=== PATIENT | male | born 1985 | race Caucasian/White ===

== ENCOUNTER 2018-05-26 20:10 | Emergency (ER) | payer OTHER ==
[~2018-05-26] VITALS: Ht 177.8 cm; Wt 94.3 kg
[2018-05-26 20:20] VITALS: BP 156/89
--- NOTE | 2018-05-26 20:22 | ED.ADGEN ---
Adult General Chief Complaint Chief Complaint ".. I keep getting these oral lesions.. my tongue swells.. 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 Patient has been evaluated several times for allergic like presentation. Patient only new meds as Chantix fo smoking cessation. Patient did eat a banana for breakfast today but has not had problems with latex fruits in the past. No recent travel. No overseas travel. No known toxic exposures. Patient does have a history of eczema. Patient normally follows at [facility]. Up-to-date with vaccinations. Review of Systems Review of Systems Constitutional: Denies fever or chills [] Eyes: Denies change in visual acuity, redness, or eye pain [] HENT: Denies nasal congestion or sore throat []complains of oral lesions and tongue swelling Respiratory: Denies cough or shortness of breath [] Cardiovascular: No additional information not addressed in HPI [] GI: Denies abdominal pain, nausea, vomiting, bloody stools or diarrhea [] : Denies dysuria or hematuria [] Musculoskeletal: Denies back pain or joint pain [] Integument: Denies rash or skin lesions [] Neurologic: Denies headache, focal weakness or sensory changes [] Endocrine: Denies polyuria or polydipsia [] All other systems were reviewed and found to be within normal limits, except as documented in this note. Family History Family History Noncontributory Current Medications Current Medications Current Medications Medications (Trade) Dose Ordered Sig/[facility] Start Time Stop Time Status Last Admin Dose Admin Albuterol Sulfate (Ventolin Hfa Inhaler) 2 puff 1X ONCE 05/26/18 20:45 05/26/18 20:49 DC 05/26/18 21:17 2 PUFF Diphenhydramine HCl (Benadryl) 50 mg 1X ONCE 05/26/18 20:45 05/26/18 20:49 DC 05/26/18 21:07 50 MG Famotidine (Pepcid Vial) 20 mg 1X ONCE 05/26/18 20:45 05/26/18 20:49 DC 05/26/18 21:11 20 MG Methylprednisolone Acetate (DEPO-Medrol IM) 40 mg 1X ONCE 05/26/18 20:45 05/26/18 20:49 DC 05/26/18 21:11 40 MG Allergies Allergies Allergies Coded Allergies Type Severity Reaction Last Updated Verified No Known Drug Allergies 05/26/18 No Physical Exam Physical Exam Constitutional: Well developed, well nourished, no acute distress, non-toxic appearance. [] HENT: Normocephalic, atraumatic, bilateral external ears normal, oropharynx moist, no oral exudates, nose normal. []Tongue slightly enlarge. Geographic changes. Mild injection of pharynx and a few nonspecific lesions on the side tongue. Eyes: PERRLA, EOMI, conjunctiva normal, no discharge. [] Neck: Normal range of motion, no tenderness, supple, no stridor. [] Cardiovascular:Heart rate regular rhythm, no murmur [] Lungs & Thorax: Bilateral breath sounds clear to auscultation [] Abdomen: Bowel sounds normal, soft, no tenderness, no masses, no pulsatile masses. [] Skin: Warm, dry, no erythema, no rash. [] Back: No tenderness, no CVA tenderness. [] Extremities: No tenderness, no cyanosis, no clubbing, ROM intact, no edema. [] Neurologic: Alert and oriented X 3, normal motor function, normal sensory function, no focal deficits noted. [] Psychologic: Affect anxious, judgement normal, mood normal. [] Current Patient Data Vital Signs Vital Signs Date Time Temp Pulse Resp B/P (MAP) Pulse Ox O2 Delivery O2 Flow Rate FiO2 05/26/18 20:50 66 144/87 (106) 99 Room Air 05/26/18 20:20 98.0 16 Lab Results Laboratory Tests Test 05/26/18 20:55 White Blood Count 7.7 x10^3/uL (4.0-11.0) Red Blood Count 5.01 x10^6/uL (4.30-5.70) Hemoglobin 14.9 g/dL (13.0-17.5) Hematocrit 43.4 % (39.0-53.0) Mean Corpuscular Volume 87 fL (79-100) Mean Corpuscular Hemoglobin 30 pg (25-35) Mean Corpuscular Hemoglobin Concent 34 g/dL (31-37) Red Cell Distribution Width 13.6 % (11.5-14.5) Platelet Count 295 x10^3/uL (140-400) Neutrophils (%) (Auto) 53 % (31-73) Lymphocytes (%) (Auto) 36 % (24-48) Monocytes (%) (Auto) 6 % (0-9) Eosinophils (%) (Auto) 4 % (0-3) H Basophils (%) (Auto) 1 % (0-3) Neutrophils # (Auto) 4.1 x10^3uL (1.8-7.7) Lymphocytes # (Auto) 2.7 x10^3/uL (1.0-4.8) Monocytes # (Auto) 0.5 x10^3/uL (0.0-1.1) Eosinophils # (Auto) 0.3 x10^3/uL (0.0-0.7) Basophils # (Auto) 0.1 x10^3/uL (0.0-0.2) Erythrocyte Sedimentation Rate 40 (0-15) H Sodium Level 142 mmol/L (136-145) Potassium Level 3.8 mmol/L (3.5-5.1) Chloride Level 103 mmol/L (98-107) Carbon Dioxide Level 31 mmol/L (21-32) Anion Gap 8 (6-14) Blood Urea Nitrogen 12 mg/dL (8-26) Creatinine 1.2 mg/dL (0.7-1.3) Estimated GFR (Cockcroft-Gault) 69.7 Glucose Level 92 mg/dL (70-99) Calcium Level 9.3 mg/dL (8.5-10.1) C-Reactive Protein < 0.5 mg/L (0-3.3) EKG EKG [] Radiology/Procedures Radiology/Procedures [] Course & Med Decision Making Course & Med Decision Making Pertinent Labs and Imaging studies reviewed. (See chart for details). Patient takes [id number] mg twice day. Benadryl 50 mg up 4 times a day for allergies. Use MDI 2 puffs 4 times a day. Follow-up primary care. Follow-up labs taken here. May need allergy testing. We will eliminate all possible meds and latex foods. [place] teeth with backing soda. Keep follow up with primary. See down time charts for further details. [] Final Impression Final Impression 1. Allergic Reaction vs Inflammatory Disorder[] Dragon Disclaimer Dragon Disclaimer This electronic medical record was generated, in whole or in part, using a voice recognition dictation system. Discharge Summary Visit Information Final Diagnosis Problems Medical Problems: (1) Allergic Status: Acute Brief Hospital Course Allergies Allergies Coded Allergies Type Severity Reaction Last Updated Verified No Known Drug Allergies 05/26/18 No Vital Signs Vital Signs Date Time Temp Pulse Resp B/P (MAP) Pulse Ox O2 Delivery O2 Flow Rate FiO2 05/26/18 20:50 66 144/87 (106) 99 Room Air 05/26/18 20:20 98.0 16 Lab Results Laboratory Tests Test 05/26/18 20:55 White Blood Count 7.7 x10^3/uL (4.0-11.0) Red Blood Count 5.01 x10^6/uL (4.30-5.70) Hemoglobin 14.9 g/dL (13.0-17.5) Hematocrit 43.4 % (39.0-53.0) Mean Corpuscular Volume 87 fL (79-100) Mean Corpuscular Hemoglobin 30 pg (25-35) Mean Corpuscular Hemoglobin Concent 34 g/dL (31-37) Red Cell Distribution Width 13.6 % (11.5-14.5) Platelet Count 295 x10^3/uL (140-400) Neutrophils (%) (Auto) 53 % (31-73) Lymphocytes (%) (Auto) 36 % (24-48) Monocytes (%) (Auto) 6 % (0-9) Eosinophils (%) (Auto) 4 % (0-3) Basophils (%) (Auto) 1 % (0-3) Neutrophils # (Auto) 4.1 x10^3uL (1.8-7.7) Lymphocytes # (Auto) 2.7 x10^3/uL (1.0-4.8) Monocytes # (Auto) 0.5 x10^3/uL (0.0-1.1) Eosinophils # (Auto) 0.3 x10^3/uL (0.0-0.7) Basophils # (Auto) 0.1 x10^3/uL (0.0-0.2) Erythrocyte Sedimentation Rate 40 (0-15) Sodium Level 142 mmol/L (136-145) Potassium Level 3.8 mmol/L (3.5-5.1) Chloride Level 103 mmol/L (98-107) Carbon Dioxide Level 31 mmol/L (21-32) Anion Gap 8 (6-14) Blood Urea Nitrogen 12 mg/dL (8-26) Creatinine 1.2 mg/dL (0.7-1.3) Estimated GFR (Cockcroft-Gault) 69.7 Glucose Level 92 mg/dL (70-99) Calcium Level 9.3 mg/dL (8.5-10.1) C-Reactive Protein < 0.5 mg/L (0-3.3) Brief Hospital Course Mr. Schwartz is a 33 old male who presented with tongue swelling and lesions. Discharge Information Condition at Discharge: Improved, Stable Disposition/Orders: D/C to Home Dischare Medications Current Medications Methylprednisolone Acetate (DEPO-Medrol IM) 40 mg 1X ONCE IM Last administered on 05/26/18at 21:11; Admin Dose 40 MG; Start 05/26/18 at 20:45; Stop 05/26/18 at 20:49; Status DC Albuterol Sulfate (Ventolin Hfa Inhaler) 2 puff 1X ONCE INH Last administered on 05/26/18at 21:17; Admin Dose 2 PUFF; Start 05/26/18 at 20:45; Stop 05/26/18 at 20:49; Status DC Diphenhydramine HCl (Benadryl) 50 mg 1X ONCE IV Last administered on at 21:07; Admin Dose 50 MG; Start 05/26/18 at 20:45; Stop 05/26/18 at 20:49; Status DC Famotidine (Pepcid Vial) 20 mg 1X ONCE IVP Last administered on 05/26/18at 21: 11; Admin Dose 20 MG; Start 05/26/18 at 20:45; Stop 05/26/18 at 20:49; Status DC Active Scripts Active Benadryl (Diphenhydramine Hcl) 25 Mg Capsule 50 Mg PO QIDPRN PRN Zantac (Ranitidine Hcl) 150 Mg Tablet 150 Mg PO BID 30 Days Discharge Summary Visit Information Final Diagnosis Problems Medical Problems: (1) Allergic Status: Acute Brief Hospital Course Allergies Allergies Coded Allergies Type Severity Reaction Last Updated Verified No Known Drug Allergies 05/26/18 No Vital Signs Vital Signs Date Time Temp Pulse Resp B/P (MAP) Pulse Ox O2 Delivery O2 Flow Rate FiO2 05/26/18 20:50 66 144/87 (106) 99 Room Air 05/26/18 20:20 98.0 16 Lab Results Laboratory Tests Test 05/26/18 20:55 White Blood Count 7.7 x10^3/uL (4.0-11.0) Red Blood Count 5.01 x10^6/uL (4.30-5.70) Hemoglobin 14.9 g/dL (13.0-17.5) Hematocrit 43.4 % (39.0-53.0) Mean Corpuscular Volume 87 fL (79-100) Mean Corpuscular Hemoglobin 30 pg (25-35) Mean Corpuscular Hemoglobin Concent 34 g/dL (31-37) Red Cell Distribution Width 13.6 % (11.5-14.5) Platelet Count 295 x10^3/uL (140-400) Neutrophils (%) (Auto) 53 % (31-73) Lymphocytes (%) (Auto) 36 % (24-48) Monocytes (%) (Auto) 6 % (0-9) Eosinophils (%) (Auto) 4 % (0-3) Basophils (%) (Auto) 1 % (0-3) Neutrophils # (Auto) 4.1 x10^3uL (1.8-7.7) Lymphocytes # (Auto) 2.7 x10^3/uL (1.0-4.8) Monocytes # (Auto) 0.5 x10^3/uL (0.0-1.1) Eosinophils # (Auto) 0.3 x10^3/uL (0.0-0.7) Basophils # (Auto) 0.1 x10^3/uL (0.0-0.2) Erythrocyte Sedimentation Rate 40 (0-15) Sodium Level 142 mmol/L (136-145) Potassium Level 3.8 mmol/L (3.5-5.1) Chloride Level 103 mmol/L (98-107) Carbon Dioxide Level 31 mmol/L (21-32) Anion Gap 8 (6-14) Blood Urea Nitrogen 12 mg/dL (8-26) Creatinine 1.2 mg/dL (0.7-1.3) Estimated GFR (Cockcroft-Gault) 69.7 Glucose Level 92 mg/dL (70-99) Calcium Level 9.3 mg/dL (8.5-10.1) C-Reactive Protein < 0.5 mg/L (0-3.3) Brief Hospital Course Mr. Schwartz is a 33 old male who presented with tongue swelling and tongue lesions. Discharge Information Condition at Discharge: Improved, Stable Disposition/Orders: D/C to Home Dischare Medications Current Medications Methylprednisolone Acetate (DEPO-Medrol IM) 40 mg 1X ONCE IM Last administered on 05/26/18at 21:11; Admin Dose 40 MG; Start 05/26/18 at 20:45; Stop 05/26/18 at 20:49; Status DC Albuterol Sulfate (Ventolin Hfa Inhaler) 2 puff 1X ONCE INH Last administered on 05/26/18at 21:17; Admin Dose 2 PUFF; Start 05/26/18 at 20:45; Stop 05/26/18 at 20:49; Status DC Diphenhydramine HCl (Benadryl) 50 mg 1X ONCE IV Last administered on at 21:07; Admin Dose 50 MG; Start 05/26/18 at 20:45; Stop 05/26/18 at 20:49; Status DC Famotidine (Pepcid Vial) 20 mg 1X ONCE IVP Last administered on 05/26/18at 21: 11; Admin Dose 20 MG; Start 05/26/18 at 20:45; Stop 05/26/18 at 20:49; Status DC Active Scripts Active Benadryl (Diphenhydramine Hcl) 25 Mg Capsule 50 Mg PO QIDPRN PRN Zantac (Ranitidine Hcl) 150 Mg Tablet 150 Mg PO BID 30 Days Dragon Disclaimer This chart was dictated in whole or in part using Voice Recognition software in a busy, high-work load, and often noisy Emergency Department environment. It may contain unintended and wholly unrecognized errors or omissions. Dragon Disclaimer This chart was dictated in whole or in part using Voice Recognition software in a busy, high-work load, and often noisy Emergency Department environment. It may contain unintended and wholly unrecognized errors or omissions. MARCUS CRUZ MD May 26, 2018 20:22
[2018-05-26] MEDS ORDERED: ALBUTEROL SULFATE 8GM INHALER. INH ONE (20:45)
[2018-05-26] MEDS ORDERED: DIPH25CA58 PO (20:45)
[2018-05-26] MEDS ORDERED: RANI150T21 PO (20:45)
[2018-05-26] MEDS ORDERED: diphenhydrAMINE 50 MG/ML VIAL IV ONE (20:45)
[2018-05-26] MEDS ORDERED: methylPREDNISolone ACETATE 40 MG/ML VIAL. IM ONE (20:45)
[2018-05-26] MEDS ORDERED: FAMOTIDINE 20 MG/2 ML VIAL IVP ONE (20:45)
[2018-05-26 21:11] LABS: BASO # 0.1 x10^3/uL (0.0-0.2); BASO % 1 % (0-3); EOS # 0.3 x10^3/uL (0.0-0.7); EOS % 4 % (0-3); HEMATOCRIT 43.4 % (39.0-53.0); HEMOGLOBIN 14.9 g/dL (13.0-17.5); LYMPH # 2.7 x10^3/uL (1.0-4.8); LYMPH % 36 % (24-48); MEAN CORPUSCULAR HEMOGLOBIN 30 pg (25-35); MEAN CORPUSCULAR HGB CONC 34 g/dL (31-37); MEAN CORPUSCULAR VOLUME 87 fL (79-100); MONO # 0.5 x10^3/uL (0.0-1.1); MONO % 6 % (0-9); NEUT # 4.1 x10^3uL (1.8-7.7); NEUT % 53 % (31-73); PLATELET COUNT 295 x10^3/uL (140-400); RED BLOOD COUNT 5.01 x10^6/uL (4.30-5.70); RED CELL DISTRIBUTION WIDTH 13.6 % (11.5-14.5); WHITE BLOOD COUNT 7.7 x10^3/uL (4.0-11.0)
[2018-05-26 21:22] LABS: ANION GAP 8 (6-14); BLOOD UREA NITROGEN 12 mg/dL (8-26); C REACTIVE PROTEIN < 0.5 mg/L (0-3.3); CALCIUM 9.3 mg/dL (8.5-10.1); CARBON DIOXIDE 31 mmol/L (21-32); CHLORIDE 103 mmol/L (98-107); CREATININE 1.2 mg/dL (0.7-1.3); GFR 69.7; GLUCOSE 92 mg/dL (70-99); POTASSIUM 3.8 mmol/L (3.5-5.1); SODIUM 142 mmol/L (136-145)
[2018-05-27 15:47] LABS: SEDIMENTATION RATE 12 (0-15)
[2018-05-27 17:11] LABS: RHEUMATOID FACTOR 10.3 IU/mL (0.0-13.9)
[2018-05-28 22:06] LABS: CYCLIC CITRULLIN PEP AB 4 units (0-19)
[2018-05-29 19:07] LABS: ANA INTERP Negative (.)
== END 2018-05-26 21:28 | disposition home or self-care (01) ==
LOC: ER 20:10
DX: T78.40XA Allergy, unspecified, initial encounter (principal); K13.79 Other lesions of oral mucosa; K14.8 Other diseases of tongue; X58.XXXA Exposure to other specified factors, initial encounter
CPT/HCPCS: 36415; 80048; 85025; 85651; 86038; 86140; 86200; 86431; 94640; 96372; 96374; 96375; 99284; J1030; J1200; J3490; J7613

== ENCOUNTER 2021-04-16 10:36 | Emergency (ER) | payer OTHER ==
[~2021-04-16] VITALS: Ht 177.8 cm; Wt 100.0 kg
[~2021-04-16 10:36] MED LIST: DIPH25CA58 PO; RANI-376 PO
[2021-04-16 10:47] VITALS: BP 133/84
[2021-04-16] MEDS ORDERED: ORPHENADRINE CITRATE 60 MG/2 ML VIAL. IM ONE (11:00)
[2021-04-16] MEDS ORDERED: HYDROcodone/APAP 5/325MG 1 TAB TABLET PO ONE (11:00)
--- NOTE | 2021-04-16 11:12 | PHYS DOC ---
Past History Past Medical History: No Pertinent History (RENAN LEWIS APRN) Past Surgical History: No Surgical History (RENAN LEWIS APRN) Alcohol Use: None Drug Use: None (RENAN LEWIS APRN) General Adult EDM: Chief Complaint: BACK PAIN OR INJURY HPI: HPI: Patient is a 35-year-old male who presents to the emergency department today for low back pain. Patient has a history of low back pain from lifting. He does follow-up with physical therapy and takes naproxen and applies heat for this pain. He has had x-rays in the past that were negative and was told this was a muscular problem. He reports that he has not been working out because of a recent diagnosis of COVID-19 and on Saturday he went back to the gym on Saturday and was lifting when he felt a pain in his low back. Patient reports bilateral low back pain but is worse on the left side and does radiate down his left leg. He rates his pain 7 out of 10. He took Aleve 2 hours prior to arrival. Patient feels that like this pain is exactly like the pain that he experienced previously after lifting. He denies any new injuries. He denies saddle anesthesias, loss of bowel or bladder, fevers, urinary symptoms. (RENAN LEWIS APRN) Review of Systems: Review of Systems: Constitutional: See HPI : See HPI Musculoskeletal: See HPI Neurologic: See HPI (RENAN LEWIS APRN) Current Medications: Current Meds: Current Medications Medications (Trade) Dose Ordered Sig/Lin Start Time Stop Time Status Last Admin Dose Admin Acetaminophen/ Hydrocodone Bitart (Lortab 5/325) 1 tab 1X ONCE 04/16/21 11:00 04/16/21 11:01 DC Orphenadrine Citrate (Norflex) 60 mg 1X ONCE 04/16/21 11:00 04/16/21 11:01 DC (RENAN LEWIS APRN) Allergies: Allergies: Allergies Coded Allergies Type Severity Reaction Last Updated Verified No Known Drug Allergies 05/26/18 No (RENAN LEWIS APRN) Physical Exam: PE: Constitutional: Well developed, well nourished, no acute distress, non-toxic appearance. [] HENT: Normocephalic, atraumatic, bilateral external ears normal, oropharynx moist, no oral exudates, nose normal. [] Eyes: PERRL, EOMI, conjunctiva normal, no discharge. [] Neck: Normal range of motion, no bony spinal tenderness, supple, no stridor. [] Cardiovascular: Normal peripheral perfusion Lungs & Thorax: Normal work of breathing, no tachypnea Abdomen: Soft and flat Skin: Warm, dry, no erythema, no rash. [] Back: No bony spinal tenderness, no paraspinal tenderness with palpation, no obvious deformities, no CVA tenderness, positive left straight leg raise, limited range of motion due to pain. [] Extremities: No tenderness, no cyanosis, no clubbing, ROM intact, no edema. [] Neurologic: Alert and oriented X 3, normal motor function, normal sensory function, no focal deficits noted. [] Psychologic: Affect normal, judgement normal, mood normal. [] (RENAN LEWIS APRN) Current Patient Data: Labs: Laboratory Tests Test 04/16/21 11:09 Urine Collection Type Unknown Urine Color Yellow Urine Clarity Clear Urine pH 5.5 Urine Specific [place] >=1.030 Urine Protein Neg Urine Glucose (UA) Neg mg/dL Urine Ketones (Stick) Neg mg/dL Urine Blood Neg Urine Nitrite Neg Urine Bilirubin Neg Urine Urobilinogen Dipstick 0.2 mg/dL Urine Leukocyte Esterase Neg Urine RBC 0 /HPF Urine WBC 0 /HPF Urine Squamous Epithelial Cells Occ /LPF Urine Bacteria 0 /HPF Current Medications Medications (Trade) Dose Ordered Sig/Lin Route PRN Reason Start Time Stop Time Status Last Admin Dose Admin Orphenadrine Citrate (Norflex) 60 mg 1X ONCE IM 04/16/21 11:00 04/16/21 11:01 DC 04/16/21 11:00 Acetaminophen/ Hydrocodone Bitart (Lortab 5/325) 1 tab 1X ONCE PO 04/16/21 11:00 04/16/21 11:01 DC 04/16/21 11:00 Vital Signs: Vital Signs Date Time Temp Pulse Resp B/P (MAP) Pulse Ox O2 Delivery O2 Flow Rate FiO2 04/16/21 10:47 98.4 64 14 133/84 (100) 99 Room Air (RENAN LEWIS APRN) EKG: EKG: [] (RENAN LEWIS APRN) Radiology/Procedures: Radiology/Procedures: []PROCEDURE: CT LUMBAR SPINE WO CONTRAST CT LUMBAR SPINE WO Date: 04/16/2021 11:06 AM Indication: low back pain post deadlift Comparison: None. Technique: Helical CT images of the lumbar spine were obtained without contrast. Coronal and sagittal reformatted images were also performed. One or more of the following dose reduction techniques were utilized: Automated exposure control (AEC), Adjustment of mA and/or kV according to patient size, Use of iterative reconstruction technique such as ASiR, CT scan done according to ALARA and image gently/image wisely. Findings: The lumbar spine is normally aligned. No acute fracture. Vertebral body heights are maintained without compression deformity. The intervertebral disc spaces are normal. No aggressive lytic or blastic osseous lesion. No high grade spinal canal stenosis or neuroforaminal narrowing. No soft tissue abnormality within the visualized abdomen or pelvis. The v isualized abdominal aorta is normal caliber. IMPRESSION: No acute osseous abnormality of the lumbar spine. No high grade spinal canal stenosis or neuroforaminal narrowing. Electronically signed by: Thiago Fish MD (04/16/2021 11:31 AM) [id number] DICTATED AND SIGNED BY: THIAGO FISH MD DATE: 04/16/21 1121 CC: RENAN LEWIS APRN; PCP,NO ~MTH0 0 (RENAN LEWIS APRN) Heart Score: C/O Chest Pain: N/A Risk Factors: Risk Factors: DM, Current or recent (<one month) smoker, HTN, HLP, family history of CAD, obesity. Risk Scores: Score 0 - 3: 2.5% MACE over next 6 weeks - Discharge Home Score 4 - 6: 20.3% MACE over next 6 weeks - Admit for Clinical Observation Score 7 - 10: 72.7% MACE over next 6 weeks - Early Invasive Strategies (RENAN LEWIS APRN) Course & Med Decision Making: Course & Med Decision Making Pertinent Labs and Imaging studies reviewed. (See chart for details) [] Patient presents to the emergency department for low back pain worse on the l eft side with left-sided radiation down his leg. Patient reports that he has a history of low back pain from lifting and had previous negative x-ray imaging. He denies any new injuries. No cauda equina symptoms. CT imaging performed of lumbar spine which showed no acute findings patient will be treated with Flexeril and pain medication as he took Aleve prior to ER arrival. Urinalysis was negative. Patient reports some relief in his symptoms with treatment in the emergency department. Patient will be discharged home with pain medication, steroid Dosepak and a muscle relaxer. Advised to follow-up with his primary care provider and continue physical therapy. I discussed with patient all findings and diagnostic testing as well as the need to follow-up with PCP for further evaluation and treatment or return to the ER if any new or worsening symptoms. Strict return precautions were also discussed at length. Patient voiced understanding and agreement with the plan. Patient is hemodynamically stable at the time of disposition. (RENAN LEWIS APRN) Dragon Disclaimer: Dragon Disclaimer: This electronic medical record was generated, in whole or in part, using a voice recognition dictation system. (RENAN LEWIS APRN) Attending Co-Sign The patient was seen and interviewed as well as examined at the bedside. The chart was reviewed. The case was discussed. Agree with the plan of care. (LUDIN ERWIN DO) Departure Departure: Impression: Primary Impression: Back pain Qualified Codes: M54.42 - Lumbago with sciatica, left side; G89.29 - Other chronic pain Disposition: HOME / SELF CARE / HOMELESS Condition: GOOD Referrals: PCP,DEBORAH (PCP) Patient Instructions: Sciatica with [facility] Additional Instructions: You are seen in the emergency department today for back pain. Your description of your symptoms as well as your physical assessment is consistent with low back pain with sciatica. This is treated with anti-inflammatory medications like ibuprofen and muscle relaxers. You are being discharged home with a steroid Dosepak to reduce inflammation, Flexeril which is a muscle relaxer and pain medication. Do not take the pain medication which is hydrocodone and Tylenol combination tablet with the Flexeril as it may cause oversedation. Do not take these 2 medications of any need to be alert, driving a vehicle or with alcohol. Follow-up with your primary care provider within 2 days. Continue physical therapy if you need to. Avoid any heavy lifting your strenuous activity over the next few days. Return to the emergency department if you develop any new injuries, worsening of your pain, loss of bowel or bladder, loss of sensation in your groin or down your legs, inability to bear weight or walk or any new or worsening concerns. Scripts Hydrocodone/Acetaminophen (Hydrocodone-Acetamin 5-325 mg) 1 Each Tablet 1 EACH PO Q6-8HRS PRN for PAIN for 2 Days, #8 TAB 0 Refills Prov: RENAN LEWIS APRN 04/16/21 Methylprednisolone (MEDROL) 4 Mg Tab.ds.pk 1 PKG PO UD for inflammation, #1 PKG 0 Refills Prov: RENAN LEWIS APRN 04/16/21 Cyclobenzaprine Hcl (CYCLOBENZAPRINE HCL) 5 Mg Tablet 1 TAB PO TID for muscle spasm for 7 Days, #21 TAB 0 Refills Prov: RENAN LEWIS APRN 04/16/21 RENAN LEWIS APRN Apr 16, 2021 11:12 LUDIN ERWIN DO Apr 17, 2021 11:06
--- NOTE | 2021-04-16 11:34 | RAD ---
CT LUMBAR SPINE WO Date: 04/16/2021 11:06 AM Indication: low back pain post deadlift Comparison: None. Technique: Helical CT images of the lumbar spine were obtained without contrast. Coronal and sagitta l reformatted images were also performed. One or more of the following dose reduction techniques were utilized: Automated exposure control (AEC), Adjustment of mA and/or kV according to patient size, Us e of iterative reconstruction technique such as ASiR, CT scan done according to ALARA and image gentl y/image wisely. Findings: The lumbar spine is normally aligned. No acute fracture. Vertebral body heights are maintained withou t compression deformity. The intervertebral disc spaces are normal. No aggressive lytic or blastic os seous lesion. No high grade spinal canal stenosis or neuroforaminal narrowing. No soft tissue abnormality within the visualized abdomen or pelvis. The visualized abdominal aorta is normal caliber. IMPRESSION: No acute osseous abnormality of the lumbar spine. No high grade spinal canal stenosis or neuroforamin al narrowing. Electronically signed by: Oleg Werner MD (04/16/2021 11:31 AM) [id number]
[2021-04-16 11:38] LABS: BACTERIA,URINE 0 /HPF (0-FEW); CLARITY,URINE CLEAR; COLOR,URINE YELLOW; GLUCOSE,URINE NEG (NEG); NITRITE,URINE NEG (NEG); RBC,URINE 0 /HPF (0-2); SQUAMOUS EPITHELIAL CELL,UR OCC /LPF; UROBILINOGEN,URINE 0.2 mg/dL (0.2 mg/dL); WBC,URINE 0 /HPF (0-4)
[2021-04-16] MEDS ORDERED: METH4TAB2 PO (11:45)
[2021-04-16] MEDS ORDERED: HYDR-2759 PO (11:45)
[2021-04-16] MEDS ORDERED: CYCL5TAB PO (11:45)
== END 2021-04-16 11:55 | disposition home or self-care (01) ==
LOC: ER 10:36
DX: M54.42 Lumbago with sciatica, left side (principal); G89.29 Other chronic pain
CPT/HCPCS: 72131; 81001; 96372; 99284; J2360